=== PATIENT | female | born 1955 | race Caucasian/White ===

== ENCOUNTER 2025-05-15 08:22 | Outpatient (CLI) | payer MEDICARE, OTHER | END 2025-05-15 08:23 | disposition home or self-care (01) | LOC: CSHSLEEP 08:22 | PROVIDERS: ATTEND Physician Assistant | DX: G47.33 Obstructive sleep apnea (adult) (pediatric) (principal); R53.83 Other fatigue; R35.1 Nocturia; E66.9 Obesity, unspecified; Z68.37 Body mass index [BMI] 37.0-37.9, adult | CPT/HCPCS: 95800 ==